=== PATIENT | female | born 1980 | race Caucasian/White ===

== ENCOUNTER 2020-02-22 12:38 | Outpatient (CLI) | payer BC, SELFPAY ==
[2020-02-22 13:14] LABS: SARS-CoV-2 Ag Negative (Negative)
[2020-02-23 06:44] LABS: SARS-CoV-2 RNA PCR Negative
== END 2020-02-22 12:39 | disposition home or self-care (01) ==
PROVIDERS: PCP Nurse Practitioner Family; Visit Provider Nurse Practitioner Family
DX: J06.9 Acute upper respiratory infection, unspecified (principal); Z20.828 Contact with and (suspected) exposure to other viral communicable diseases
CPT/HCPCS: 87426; 87635; C9803; U0003

== ENCOUNTER 2020-05-14 19:56 | Emergency (ER) | payer BC, SELFPAY ==
[2020-05-14 20:00] VITALS: BP 141/84; PULSE 103; RESP 20; TEMP 36.6; O2SAT 97
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
[2020-05-14] MEDS: LIDO 1%/EPINEPHRINE 1:100,000 20 ML VIAL 5 ML INFILTRATE (20:12)
[2020-05-14] MEDS: NEOMYCIN/POLYMYXIN/BACITRACIN OINTMENT PACKET 1 PACKET (20:30)
[2020-05-14 20:40] VITALS: BP 140/81; PULSE 85; RESP 18; TEMP 36.6; O2SAT 98
== END 2020-05-14 20:50 | disposition home or self-care (01) ==
PROVIDERS: Emergency Provider Emergency Medicine; PCP Nurse Practitioner Family
DX: S61.412A Laceration without foreign body of left hand, initial encounter (principal); W26.0XXA Contact with knife, initial encounter
CPT/HCPCS: 12001; 99282

== ENCOUNTER 2020-08-15 13:29 | Emergency (ER) | payer OTHER, BC, SELFPAY ==
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
[2020-08-15 13:40] VITALS: BP 133/60; PULSE 94; RESP 18; TEMP 36.3; O2SAT 95
[2020-08-15] MEDS: KETOROLAC (*BKC) 60 MG/2 ML VIAL IM (14:10)
[2020-08-15 14:19] LABS: Basophils Absolute Auto 0.09 K/mm3 (0.00-0.10); Basophils Percent Auto 0.8 % (0.0-1.0); Eosinophils Absolute Auto 0.33 K/mm3 (0.02-0.50); Eosinophils Percent Auto 2.8 % (1.0-6.0); Hematocrit 39.4 % (35.0-49.0); Hemoglobin 11.8 g/dL (12.0-15.0); Immature Granulocyte Absolute 0.05 K/mm3 (0.00-0.00); Immature Granulocyte Percent A 0.4 % (0.0-0.0); Lymphocytes Absolute Auto 3.04 K/mm3 (1.10-4.50); Lymphocytes Percent Auto 25.5 % (18.0-42.0); Mean Corpuscular HGB Conc 29.9 g/dL (32.0-36.0); Mean Corpuscular Hemoglobin 22.1 pg (27.0-31.0); Mean Corpuscular Volume 73.6 fL (78.0-102.0); Mean Platelet Volume 9.7 fl (9.2-11.8); Monocytes Percent Auto 6.7 % (2.0-11.0); Neutrophils Absolute Auto 7.6 K/mm3 (1.7-7.2); Neutrophils Percent Auto 63.8 % (50.0-70.0); Platelet Count Result 469 K/mm3 (150-420); Red Blood Count 5.35 M/mm3 (4.20-5.40); Red Cell Distribution Width 18.6 % (11.6-14.4); White Blood Count 11.9 K/mm3 (4.8-10.8)
[2020-08-15 14:37] LABS: Alanine Aminotransferase 23 U/L (14-59); Albumin Level 3.6 g/dL (3.4-5.0); Alkaline Phosphatase 94 U/L (46-116); Anion Gap 8 mmol/L (8-16); Aspartate Amino Transferase 10 U/L (15-37); Bilirubin,Total 0.2 mg/dL (0.00-1.00); Blood Urea Nitrogen 9 mg/dL (7-18); Calcium 8.9 mg/dL (8.5-10.1); Carbon Dioxide 28 mmol/L (21-32); Chloride 104 mmol/L (98-108); Creatine Kinase 101 U/L (26-192); Estimated CRCL calculation 91 ml/min; Estimated Glomerular Filt Rate > 60; Glucose 92 mg/dL (70-99); Osmolality Calculated 288 mOsm/kg (285-295); Potassium 4.4 mmol/L (3.5-5.1); Sodium 140 mmol/L (136-145); Total Protein 8.4 g/dL (6.4-8.2)
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
[2020-08-15 15:43] VITALS: BP 129/85; PULSE 85; RESP 16
== END 2020-08-15 15:40 | disposition home or self-care (01) ==
PROVIDERS: Emergency Provider Emergency Medicine; PCP Nurse Practitioner Family
DX: S16.1XXA Strain of muscle, fascia and tendon at neck level, initial encounter (principal); S46.911A Strain of unspecified muscle, fascia and tendon at shoulder and upper arm level, right arm, initial encounter; V49.9XXA Car occupant (driver) (passenger) injured in unspecified traffic accident, initial encounter
CPT/HCPCS: 36415; 70450; 72125; 73200; 80053; 82550; 85025; 96372; 99283; 99284; J1885

== ENCOUNTER 2021-04-02 09:10 | Outpatient (CLI) | payer BC, SELFPAY ==
[2021-04-02 10:18] LABS: SARS-CoV-2 RNA PCR Negative (Negative)
== END 2021-04-02 09:11 | disposition home or self-care (01) ==
LOC: CHSLAB 09:14
PROVIDERS: PCP Nurse Practitioner Family; Visit Provider Nurse Practitioner Family
DX: Z20.822 Contact with and (suspected) exposure to COVID-19 (principal)
CPT/HCPCS: C9803; U0003; U0005

== ENCOUNTER 2021-08-21 11:00 | Outpatient (CLI) | payer BC, SELFPAY ==
[2021-08-22 19:45] LABS: Cholesterol 154 mg/dL (0-200); HDL Direct 36 mg/dL (40-60); LDL Cholesterol Calculated 93 mg/dL (<130); Triglycerides 125 mg/dL (0-150)
== END 2021-08-21 11:01 | disposition home or self-care (01) ==
LOC: CHSLAB 11:02
PROVIDERS: PCP Nurse Practitioner Family; Visit Provider Nurse Practitioner Family
DX: T78.40XA Allergy, unspecified, initial encounter (principal); I10 Essential (primary) hypertension; L50.1 Idiopathic urticaria
CPT/HCPCS: 36415; 80061; 82785; 84443; 86003

== ENCOUNTER 2021-10-30 13:28 | Outpatient (CLI) | payer BC, SELFPAY ==
[2021-10-30 14:03] LABS: Free T4 Free Thyroxine 1.28 ng/dL (0.76-1.46)
[2021-11-02 02:39] LABS: Thyroid Peroxidase Antibodies 53 IU/mL (<9)
== END 2021-10-30 13:29 | disposition home or self-care (01) ==
LOC: CHSLAB 13:30
PROVIDERS: PCP Nurse Practitioner Family; Visit Provider Internal Medicine Endocrinology, Diabetes & Metabolism
DX: E03.9 Hypothyroidism, unspecified (principal)
CPT/HCPCS: 36415; 84439; 84443; 86376

== ENCOUNTER 2022-05-11 13:41 | Outpatient (CLI) | payer BC, SELFPAY ==
[2022-05-11 14:48] LABS: Anion Gap 10 mmol/L (8-16); Blood Urea Nitrogen 11 mg/dL (7-18); Calcium 8.9 mg/dL (8.5-10.1); Carbon Dioxide 26 mmol/L (21-32); Chloride 104 mmol/L (98-108); Estimated Glomerular Filt Rate > 60; Free T4 Free Thyroxine 1.33 ng/dL (0.76-1.46); Glucose 103 mg/dL (70-99); Osmolality Calculated 289 mOsm/kg (285-295); Potassium 4.3 mmol/L (3.5-5.1); Sodium 140 mmol/L (136-145); Thyroid Stimulating Hormone 1.05 uIU/mL (0.36-3.74)
[2022-05-14 17:23] LABS: Vitamin D 25 Hydroxy 27 ng/mL (30-100)
== END 2022-05-11 13:42 | disposition home or self-care (01) ==
LOC: CHSLAB 13:43
PROVIDERS: PCP Nurse Practitioner Family; Visit Provider Nurse Practitioner Family
DX: E03.9 Hypothyroidism, unspecified (principal); Z68.41 Body mass index [BMI] 40.0-44.9, adult
CPT/HCPCS: 36415; 80048; 82306; 84439; 84443

== ENCOUNTER 2022-11-11 09:45 | Outpatient (CLI) | payer BC, SELFPAY ==
[2022-11-11 16:55] LABS: Alanine Aminotransferase 37 U/L (6-35); Albumin Level 4.5 g/dL (3.5-5.1); Alkaline Phosphatase 92 U/L (38-126); Anion Gap 11 mmol/L (8-16); Aspartate Amino Transferase 99 U/L (14-36); Bilirubin,Total 0.3 mg/dL (0.2-1.3); Blood Urea Nitrogen 6 mg/dL (7-17); Calcium 9.2 mg/dL (8.4-10.2); Carbon Dioxide 24 mmol/L (22-30); Chloride 106 mmol/L (98-107); Cholesterol 136 mg/dL (0-200); Estimated Glomerular Filt Rate > 60; Glucose 76 mg/dL (65-110); HDL Direct 28 mg/dL; Potassium 3.8 mmol/L (3.4-5.0); Sodium 141 mmol/L (137-145); Triglycerides 113 mg/dL (<150)
[2022-11-11 17:06] LABS: LDL Cholesterol Direct 85 mg/dL
[2022-11-11 17:12] LABS: Free T4 Free Thyroxine 1.66 ng/mL (0.78-2.19)
[2022-11-11 17:25] LABS: Thyroid Stimulating Hormone < 0.015 uIU/mL (0.465-4.680)
== END 2022-11-11 09:46 | disposition home or self-care (01) ==
LOC: ANHWCLAB 09:46
PROVIDERS: PCP Nurse Practitioner Family; Visit Provider Internal Medicine Endocrinology, Diabetes & Metabolism
DX: R73.03 Prediabetes (principal); E55.9 Vitamin D deficiency, unspecified; E03.9 Hypothyroidism, unspecified
CPT/HCPCS: 36415; 80053; 80061; 82306; 84439; 84443

== ENCOUNTER 2023-02-18 12:52 | Outpatient (NON) | payer BC, SELFPAY | END 2023-02-18 12:53 | disposition home or self-care (01) | LOC: CHSLAB 12:58 | PROVIDERS: Visit Provider Nurse Practitioner Family | DX: Z12.4 Encounter for screening for malignant neoplasm of cervix (principal); Z11.51 Encounter for screening for human papillomavirus (HPV); Z78.0 Asymptomatic menopausal state | CPT/HCPCS: 87491; 87591; 87624; 88141; 88175; G0145 ==

== ENCOUNTER 2023-04-02 10:31 | Outpatient (CLI) | payer BC, SELFPAY ==
[2023-04-02 11:54] LABS: Alanine Aminotransferase 27 U/L (14-59); Alkaline Phosphatase 93 U/L (46-116); Anion Gap 9 mmol/L (8-16); Aspartate Amino Transferase 12 U/L (15-37); Bilirubin,Total 0.2 mg/dL (0.00-1.00); Blood Urea Nitrogen 11 mg/dL (7-18); Calcium 8.9 mg/dL (8.5-10.1); Carbon Dioxide 28 mmol/L (21-32); Chloride 100 mmol/L (98-108); Estimated Glomerular Filt Rate > 60; Free T4 Free Thyroxine 1.32 ng/dL (0.76-1.46); Glucose 86 mg/dL (70-99); Osmolality Calculated 282 mOsm/kg (285-295); Potassium 4.5 mmol/L (3.5-5.1); Sodium 137 mmol/L (136-145); Thyroid Stimulating Hormone 0.16 uIU/mL (0.36-3.74); Total Protein 7.7 g/dL (6.4-8.2)
== END 2023-04-02 10:32 | disposition home or self-care (01) ==
LOC: CHSLAB 10:32
PROVIDERS: PCP Nurse Practitioner Family; Visit Provider Internal Medicine Endocrinology, Diabetes & Metabolism
DX: R74.01 Elevation of levels of liver transaminase levels (principal); E06.3 Autoimmune thyroiditis; E03.8 Other specified hypothyroidism
CPT/HCPCS: 36415; 80053; 84439; 84443

== ENCOUNTER 2023-07-22 13:50 | Outpatient (CLI) | payer OTHER, SELFPAY ==
[2023-07-22 15:02] LABS: Free T4 Free Thyroxine 1.06 ng/dL (0.76-1.46); Thyroid Stimulating Hormone 0.71 uIU/mL (0.36-3.74)
[2023-07-22 15:20] LABS: Hemoglobin A1C 5.6 % (<5.7)
== END 2023-07-22 13:51 | disposition home or self-care (01) ==
LOC: CHSLAB 13:54
PROVIDERS: PCP Nurse Practitioner Family; Visit Provider Internal Medicine Endocrinology, Diabetes & Metabolism
DX: E03.9 Hypothyroidism, unspecified (principal); R73.03 Prediabetes
CPT/HCPCS: 36415; 83036; 84439; 84443

== ENCOUNTER 2024-06-05 15:28 | Outpatient (CLI) | payer BC, SELFPAY ==
[2024-06-05 16:25] LABS: Thyroid Stimulating Hormone 5.64 uIU/mL (0.36-3.74)
== END 2024-06-05 15:29 | disposition home or self-care (01) ==
PROVIDERS: PCP Nurse Practitioner Family; Visit Provider Nurse Practitioner Family
DX: E03.8 Other specified hypothyroidism (principal); E06.3 Autoimmune thyroiditis; N89.8 Other specified noninflammatory disorders of vagina
CPT/HCPCS: 36415; 84443; 87491; 87591; 87624; 88175; G0145

== ENCOUNTER 2024-06-12 13:52 | Outpatient (CLI) | payer BC, SELFPAY ==
--- NOTE | ~2024-06-12 | MM_ITS ---
EXAMINATION: MM screening marybeth BI w philip HISTORY: Screening mammogram TECHNIQUE: Craniocaudal and mediolateral oblique 3-D tomosynthesis images were obtained and synthetic 2-D images were generated. CAD analysis was submitted and interpreted. COMPARISON: No prior mammogram is available for comparison at this institution. BREAST PARENCHYMAL COMPOSITION:Not Dense. The breasts are almost entirely fatty FINDINGS: There is a probable ovoid mass at the posterior upper, outer left breast. No suspicious abn ormality in the right breast. IMPRESSION: Probable upper, outer left breast mass, as above. Spot compression views and ultrasound are recommen ded for further evaluation. BI-RADS Category 0: Incomplete: Needs additional imaging evaluation. Reviewed, dictated and finalized at location . IMPRESSION: Probable upper, outer left breast mass, as above. Spot compression views and u ltrasound are recommended for further evaluation. BI-RADS Category 0: Incomplete: Needs additional imaging evaluation.
[2024-06-12 14:16] LABS: Basophils Absolute Auto 0.01 K/mm3 (0.00-0.10); Basophils Percent Auto 0.2 % (0.0-1.0); Eosinophils Absolute Auto 0.01 K/mm3 (0.02-0.50); Eosinophils Percent Auto 0.2 % (1.0-6.0); Hemoglobin 10.2 g/dL (12.0-15.0); Immature Granulocyte Absolute 0.01 K/mm3 (0.00-0.00); Immature Granulocyte Percent A 0.2 % (0.0-0.0); Lymphocytes Absolute Auto 2.55 K/mm3 (1.10-4.50); Lymphocytes Percent Auto 43.9 % (18.0-42.0); Mean Corpuscular HGB Conc 29.1 g/dL (32-36); Mean Corpuscular Hemoglobin 20.2 pg (27.0-31.0); Mean Corpuscular Volume 69.2 fL (78.0-102.0); Mean Platelet Volume 9.6 fl (9.2-11.8); Monocytes Absolute Auto 0.39 K/mm3 (0.10-0.90); Monocytes Percent Auto 6.7 % (2.0-11.0); Neutrophils Absolute Auto 2.84 K/mm3 (1.70-7.20); Neutrophils Percent Auto 48.8 % (50.0-70.0); Platelet Count Result 493 K/mm3 (150-420); Red Blood Count 5.06 M/mm3 (4.20-5.40); Red Cell Distribution Width 18.6 % (11.6-14.4); White Blood Count 5.8 K/mm3 (4.8-10.8)
[2024-06-12 14:44] LABS: Hemoglobin A1C 6.2 % (<5.7)
[2024-06-12 14:58] LABS: Alanine Aminotransferase 15 U/L (14-59); Albumin Level 3.5 g/dL (3.4-5.0); Alkaline Phosphatase 90 U/L (46-116); Anion Gap 12 mmol/L (4-12); Aspartate Amino Transferase < 10 U/L (15-37); Bilirubin,Total 0.2 mg/dL (0.00-1.00); Blood Urea Nitrogen 8 mg/dL (7-18); Calcium 8.8 mg/dL (8.5-10.1); Carbon Dioxide 24 mmol/L (21-32); Chloride 106 mmol/L (98-108); Cholesterol 146 mg/dL (0-200); Estimated Glomerular Filt Rate > 60; Glucose 122 mg/dL (70-99); HDL Direct 37 mg/dL (40-60); LDL Cholesterol Calculated 88 mg/dL (<130); Osmolality Calculated 293 mOsm/kg (285-295); Potassium 3.9 mmol/L (3.5-5.1); Sodium 142 mmol/L (136-145); Total Protein 7.2 g/dL (6.4-8.2); Triglycerides 106 mg/dL (0-150)
--- OUTSIDE RECORDS SUMMARY | 2024-06-12 15:59 | XMS_ITS | Clinical Summary ---
Author Organization [facility] Address [facility] [place] [address] Care Team Providers Care Distillery Worker General Name Role Phone Stanley Valero Primary Care Provider [phone] Encounters Date Type Department Care Team Description 06/05/2024 2:33 PM SALESFORCE CONSULTANT - 06/05/2024 11:59 PM SALESFORCE CONSULTANT Hospital Encounter [facility] [address] [place] [address] Stanley Valero FNP Discharge Disposition: Home or Self Care (Routine Discharge) from Last 3 Months Social History Tobacco Use Types Packs/Day Years Used Date Smoking Tobacco: Never Assessed Comments Unknown Sex and Gender Information Value Date Recorded Sex Assigned at Female 06/06/2024 2:33 PM SALESFORCE CONSULTANT Legal Sex Female 4:06 PM CDT Gender Identity Not on file Sexual Orientation Not on file Plan of Treatment Health Maintenance Due Date Last Done Comments Cervical Cancer Screening Pa p Smear (Age 30 to 64) Every 3 Years 1980 Annual Physical 02/04/1983 Hepatitis C 02/04/1998 DTaP, Tdap and Td Vaccines ( 1 - Tdap) 02/04/1999 Hepatitis B Vaccines (1 of 3 - 19+ 3-dose series) 02/04/1999 Mammogram Screening 2020 COVID-19 Vaccine (2023-2 5 season) 2023 Influenza Adult (#1) 2024 Cervical Cancer Screening Pa p with HPV Testing (Age 30 to 64) Every 5 Years 06/05/2029 06/05/2024, 02/18/2023 Cervical Cancer Screening wi th HPV 06/05/2029 HPV Vaccines Aged Out No longer eligi ble based on patient's age to complete this topic Meningococcal B Vaccine Aged Out No l onger eligible based on patient's age to complete this topic Meningococcal Vaccine Aged Out No vipul emilee eligible based on patient's age to complete this topic Pneumococcal Vaccine: Pediatrics (0 to 5 Years) and At-Risk Patients (6 to 64 Years) Aged Out No longer eligible b ased on patient's age to complete this topic RSV Immunizations Under 20 Months Aged Out No longer eligible b ased on patient's age to complete this topic Procedures Procedure Name Priority Date/Time Associated Diagnosis Comments HUMAN PAPILLOMAVIRUS, HIGH-RISK TYPES Routine 06/05/2024 8:00 AM SALESFORCE CONSULTANT from Last 3 Months Results * HUMAN PAPILLOMAVIRUS, HIGH-RISK TYPES (06/05/2024 8:00 AM SALESFORCE CONSULTANT) SPEC DESCRIPTION CERVIX 06/07/19 25 3:17 PM SALESFORCE CONSULTANT [facility] HPV DNA HIGH RISK NEGATIVE NEGATIVE 06/07/2024 12:10 PM SALESFORCE CONSULTANT [facility] Comment:SEE CYTOLOGY REPORT 06/05/2024 8:00 AM SALESFORCE CONSULTANT Stanley RIOS PATHOLOGY/CYTOLOGY ORDERABLES Final Result [facility] [address] [place] [address], from Last 3 Months Care Teams Distillery Worker General Relationship Specialty Start Date End Date Stanley Valero FNP [address] [place] [phone] PCP - General Nurse Practitioner Family 02/24/23
[2024-06-14 09:07] LABS: Free T4 Free Thyroxine 1.07 ng/dL (0.76-1.46); Iron 21 ug/dL (50-170); Percent Iron Saturation 5 % (12-57)
== END 2024-06-12 13:53 | disposition home or self-care (01) ==
LOC: CHSIMG 13:54
PROVIDERS: PCP Nurse Practitioner Family; Visit Provider Nurse Practitioner Family
DX: Z00.00 Encounter for general adult medical examination without abnormal findings (principal); R79.89 Other specified abnormal findings of blood chemistry; E03.8 Other specified hypothyroidism; E06.3 Autoimmune thyroiditis; Z12.31 Encounter for screening mammogram for malignant neoplasm of breast; R92.8 Other abnormal and inconclusive findings on diagnostic imaging of breast
CPT/HCPCS: 36415; 77063; 77067; 80053; 80061; 83036; 83540; 83550; 84439; 85025

== ENCOUNTER 2024-10-06 02:36 | Emergency (ER) | payer BC, SELFPAY ==
[2024-10-06 02:40] VITALS: BP 150/84; PULSE 94; RESP 14; TEMP 36.6; O2SAT 98
--- NOTE | 2024-10-06 02:50 | ED.ALLEREA ---
HPI - Allergic Reaction General Chief complaint: Allergic Reaction Stated complaint: ALLERGIC REACTION Time Seen by Provider: 10/06/24 02:49 Source: patient Mode of arrival: ambulatory Limitations: no limitations History of Present Illness HPI narrative: this is a 44-year-old female with presents with hives has been having issues with his over the last couple months as an appoint with Dermatology has been on medication but had a flare and has itching with no shortness of breath no audible wheezing no fever chills no abdominal pain no nausea vomiting. complaint: hives Onset (ago): day(s) Symptoms: rash and itching Related Data Home Medications ?Medication ?Instructions ?Recorded ?Confirmed ?Last Taken ?Type bupropion HCl 300 mg 24 hr tablet, mg PO DAILY 06/05/24 06/27/24 Unknown History extended release propranolol 10 mg tablet mg PO TID 06/05/24 06/27/24 Unknown History venlafaxine 50 mg tablet 50 mg PO BID 06/05/24 06/27/24 Unknown History Allergies Allergy/AdvReac Type Severity Reaction Status Date / Time No Known Allergies Allergy Verified 10/06/24 02:51 Review of Systems Review of Systems: All systems reviewed & are unremarkable except as noted in HPI and below PMFSH Past Medical History Medical History Sinusitis Right ankle sprain Well woman exam Otitis external Dysfunction of right eustachian tube HTN (hypertension) Hypothyroidism GERD (gastroesophageal reflux disease) THEO (generalized anxiety disorder) Surgical History Surgical History H/O dilation and curettage H/O section H/O endoscopy History of foot surgery Hx of cholecystectomy 2010 Family History Family History Mother Hypertension Father Family history of diabetes mellitus in first degree relative Father Family history of type 2 diabetes mellitus Mother Depression Family history of bipolar disorder Social History Social History Smoking packs per day: 0.5 Smoking cigarettes per day: 10.0 Years smoked: 20 Smoking pack-years: 10.00 Smoking status: Former smoker Tobacco type: cigarettes Alcohol intake: current Alcohol use details: rarely, glass of wine Substance use: never Lack of Transportation: No Lack of Food: Never True Current Housing: I Have Housing Concerned About Future Housing: No Difficulty Paying Gas/Electric Bills: No Difficulty Paying for Meds: No Currently Unemployed: No Education: Don't Know Difficulty w/ Childcare or Family Care: No Exam Const: General: healthy appearing and no acute distress Nutritional Appearance: well nourished Orientation/consciousness: patient oriented x3 Limitations: no limitations HENMT: Head: normal to inspection Eyes: Conjunctivae: conjunctivae normal Neck: Neck: normal visual inspection, no lymphadenopathy and no meningeal signs Chest: Chest palpation & inspection: normal inspection of the chest Resp: Effort & Inspection: normal respiratory effort Auscultation: clear to auscultation bilaterally Cardio: Rate: regular rate Rhythm: regular rhythm GI: GI Palp: Yes Soft to palpation Auscultation: normal bowel sounds Urinary Catheter: Urinary Catheter: patent and draining Skin: Other: Urticarial rash Extrem: General: normal to inspection, no clubbing, cyanosis or edema and no pedal edema Course Course Emergency Course: patient with urticarial rash without any symptoms of shortness of breath no stridor no audible wheezing no nausea vomiting or abdominal pain no fever chills has been on medication including Zyrtec Pepcid and low dose of a steroid and has taken Benadryl prior to arrival here for her itching. Will administer 80mg IM Depo-Medrol and will prescribe larger dose of prednisone 20mg daily x5 days. Vital Signs Vital signs: Vital Signs Temperature 36.6 C 10/06/24 02:40 Pulse Rate 94 10/06/24 02:40 Respiratory Rate 14 10/06/24 02:40 Blood Pressure 150/84 H 10/06/24 02:40 Pulse Oximetry 98 10/06/24 02:40 Oxygen Delivery Room Air 10/06/24 02:40 Temperature 36.6 C 10/06/24 02:40 Pulse Rate 94 10/06/24 02:40 Respiratory Rate 14 10/06/24 02:40 Blood Pressure 150/84 H 10/06/24 02:40 Pulse Oximetry 98 10/06/24 02:40 Oxygen Delivery Room Air 10/06/24 02:40 Critical Care Time Critical Care Time Critical Care Time: No Discharge Plan Discharge Clinical Impression: Idiopathic urticaria Patient Disposition: Home Condition: Stable Instructions: Antibiotic Form Additional Instructions: Advised patient to continue her medical regimen, and take prednisone 20mg daily x5 days and follow with primary and Dermatology. Patient Language: Bulgarian Prescriptions: New prednisone 20 mg tablet 20 mg PO DAILY 5 Days Qty: 5 0RF No Action venlafaxine 50 mg tablet 50 mg PO BID propranolol 10 mg tablet PO TID bupropion HCl 300 mg tablet extended release 24 hr PO DAILY fluticasone propionate 50 mcg/actuation spray,suspension See Rx Instructions .ROUTE .COMPLEX Qty: 16 0RF Dose Instruction: USE ONE SPRAY IN EACH NOSTRIL DAILY NEEDED Rx Instructions: USE ONE SPRAY IN EACH NOSTRIL DAILY NEEDED azelastine 137 mcg (0.1 %) aerosol,spray See Rx Instructions .ROUTE .COMPLEX Qty: 30 0RF Dose Instruction: USE 2 SPRAYS IN EACH NOSTRIL EVERY TWELVE HOURS Rx Instructions: USE 2 SPRAYS IN EACH NOSTRIL EVERY TWELVE HOURS venlafaxine 75 mg capsule,extended release 24hr See Rx Instructions .ROUTE .COMPLEX Qty: 180 3RF Dose Instruction: TAKE ONE CAPSULE BY MOUTH TWICE A DAY Rx Instructions: TAKE ONE CAPSULE BY MOUTH TWICE A DAY levothyroxine 137 mcg tablet 137 mcg PO DAILY Qty: 90 1RF omeprazole 40 mg capsule,delayed release(DR/EC) See Rx Instructions .ROUTE .COMPLEX Qty: 90 3RF Dose Instruction: TAKE ONE CAPSULE BY MOUTH TWICE A DAY Rx Instructions: TAKE ONE CAPSULE BY MOUTH TWICE A DAY Wegovy 0.25 mg/0.5 mL pen injector 0.25 mg subcut WEEKLY Qty: 2 1RF Rx Instructions: administer weeks 1 through 4 of therapy Depo-SubQ provera 104 104 mg/0.65 mL syringe 104 mg subcut [id number] Qty: 0.65 2RF montelukast 10 mg tablet See Rx Instructions .ROUTE .COMPLEX Qty: 90 0RF Dose Instruction: TAKE ONE TABLET BY MOUTH DAILY Rx Instructions: TAKE ONE TABLET BY MOUTH DAILY Follow-up/Referrals: Stanley Valero APRN [Primary Care Provider] - Time of Disposition: 02:54
[2024-10-06] MEDS: methylPREDNISolone ACETATE 40 MG/ML VIAL 80 MG IM (02:54)
--- OUTSIDE RECORDS SUMMARY | 2024-10-06 02:55 | XMS_ITS | Clinical Summary ---
Author Organization [facility] Address [address] [place] [id number] Care Team Providers Care Blow Pit Helper Name Role Phone Valero, Stanley RIOS Primary Care Provider [phone] Social History Tobacco Use Types Packs/Day Years Used Date Smoking Tobacco: Never Assessed Comments Unknown Sex and Gender Information Value Date Recorded Sex Assigned at Female 06/06/2024 2:33 PM STEEL TURNER Legal Sex Female 4:06 PM CDT Gender [...] series) 02/04/1999 Mammogram Screening 2020 COVID-19 Vaccine ( - 2023-2 5 season) 2023 Cervical Cancer Screening Pa p with HPV [...] 5 Years) and At-Risk Patients (6 to 49 Years) Aged Out No longer eligible b ased on patient's age to complete this topic RSV Immunizations Under 20 Months Aged Out No longer eligible b ased on patient's age to complete this topic Procedures Procedure Name Priority Date/Time Associated Diagnosis Comments HUMAN PAPILLOMAVIRUS, HIGH-RISK TYPES Routine 06/05/2024 8:00 AM STEEL TURNER from Last 3 Months or Most Recently Relevant to Health Maintenance Results * HUMAN PAPILLOMAVIRUS, HIGH-RISK TYPES (06/05/2024 8:00 AM STEEL TURNER) SPEC DESCRIPTION CERVIX 06/07/19 25 3:17 PM STEEL TURNER [facility] HPV DNA HIGH RISK NEGATIVE NEGATIVE 06/07/2024 12:10 PM STEEL TURNER [facility] Comment:SEE CYTOLOGY REPORT 06/05/2024 8:00 AM STEEL TURNER Stanley RIOS PATHOLOGY/CYTOLOGY ORDERABLES Final Result Performing Organization Address City/State/[facility] Co de Phone Number [facility] [address] [place] [address], from Last 3 Months or Most Recently Relevant to Health Maintenance Care Teams Blow Pit Helper Relationship Specialty Start Date End Date Stanley Valero FNP [address] [place] [phone] PCP - General Nurse Practitioner Family 02/24/23
== END 2024-10-06 03:20 | disposition home or self-care (01) ==
PROVIDERS: Emergency Provider Emergency Medicine; PCP Nurse Practitioner Family
DX: L50.1 Idiopathic urticaria (principal); E03.9 Hypothyroidism, unspecified; I10 Essential (primary) hypertension; Z87.891 Personal history of nicotine dependence
CPT/HCPCS: 96372; 99283; J1010

== ENCOUNTER 2025-01-31 12:48 | Outpatient (CLI) | payer BC, SELFPAY ==
[2025-01-31 13:07] LABS: Hematocrit 34.8 % (35.0-49.0); Hemoglobin 9.8 g/dL (12.0-15.0); Immature Granulocyte Percent A 0.3 % (0.0-0.0); Lymphocytes Absolute Auto 2.79 K/mm3 (1.10-4.50); Mean Corpuscular HGB Conc 28.2 g/dL (32-36); Mean Corpuscular Hemoglobin 19.3 pg (27.0-31.0); Mean Corpuscular Volume 68.5 fL (78.0-102.0); Nucleated Red Blood Cells Absolute Auto 0.00 K/mm3 (0.00-0.00); Nucleated Red Blood Cells Perc 0.0 % (0-0.0); Platelet Count Result 453 K/mm3 (150-420); Red Blood Count 5.08 M/mm3 (4.20-5.40); White Blood Count 7.7 K/mm3 (4.8-10.8)
[2025-01-31 13:29] LABS: Hemoglobin A1C 6.0 % (<5.7)
[2025-01-31 13:36] LABS: Iron 30 ug/dL (37-170)
[2025-01-31 13:37] LABS: Alanine Aminotransferase 14 U/L (6-35); Albumin Level 4.4 g/dL (3.5-5.1); Alkaline Phosphatase 88 U/L (38-126); Anion Gap 11 mmol/L (4-12); Aspartate Amino Transferase 24 U/L (14-36); Bilirubin,Total 0.4 mg/dL (0.2-1.3); Blood Urea Nitrogen 10 mg/dL (7-17); Calcium 9.3 mg/dL (8.4-10.2); Carbon Dioxide 25 mmol/L (22-30); Chloride 107 mmol/L (98-107); Estimated Glomerular Filt Rate > 60; Glucose 84 mg/dL (65-110); Osmolality Calculated 294 mOsm/kg (285-295); Potassium 4.5 mmol/L (3.4-5.0); Sodium 143 mmol/L (137-145); Total Protein 7.1 g/dL (6.3-8.2)
[2025-01-31 13:46] LABS: Percent Iron Saturation 7 % (20-50)
[2025-01-31 14:07] LABS: Thyroid Stimulating Hormone Reflex 2.370 uIU/mL (0.465-4.68)
[2025-01-31 14:12] LABS: Ferritin 6.51 ng/mL (6.24-137)
[2025-01-31 14:44] LABS: Vitamin B12 545.0 pg/mL (239-931)
== END 2025-01-31 12:49 | disposition home or self-care (01) ==
PROVIDERS: PCP Nurse Practitioner Family; Visit Provider Nurse Practitioner Family
DX: Z00.00 Encounter for general adult medical examination without abnormal findings (principal); D64.9 Anemia, unspecified; R20.2 Paresthesia of skin; R79.89 Other specified abnormal findings of blood chemistry; R73.03 Prediabetes
CPT/HCPCS: 36415; 80053; 82607; 82728; 82746; 83036; 83540; 83550; 84443; 85025